=== PATIENT | male | born 1950 | race Caucasian/White ===

== ENCOUNTER 2017-04-12 19:06 | Emergency (ER) | payer MEDICARE, OTHER ==
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
== END 2017-04-12 23:15 | disposition home or self-care (01) ==
LOC: NAV ERS 19:06
DX: S02.2XXA Fracture of nasal bones, initial encounter for closed fracture (principal); Z87.891 Personal history of nicotine dependence; V89.2XXA Person injured in unspecified motor-vehicle accident, traffic, initial encounter
CPT/HCPCS: 70160; 71010; 72040